=== PATIENT | male | born 1935 | race Caucasian/White ===

== ENCOUNTER 2019-08-03 09:48 | Outpatient (CLI) | payer MEDICARE ==
--- NOTE | 2019-08-03 10:47 | CT ---
CT ANGIOGRAM OF THE NECK: HISTORY: Carotid stenosis. COMPARISON: None. TECHNIQUE: CT angiogram of the neck is performed in the axial plane. Three-dimensional reformatted images are higgins bmitted for interpretation. FINDINGS: No pathologic enhancement of the brain parenchyma. Adequate aeration of the visualized sinuses and mastoid air cells, with the exception of the right ma xillary sinus where there is mild mucosal disease. Aerodigestive tract is patent. No obvious mucosal abnormality. Dental amalgam artifact is noted. Midl ine fatty raphae of the tongue is preserved. Epiglottis has a normal caliber. Preepiglottic fat is preserved. Symmetric attenuation of the parotid and submandibular glands. Symmetric attenuation of the paraspinal muscles. Cervical spine vertebral body heights are maintained. There is no fracture. Straightening of cervical lordosis is noted. There is multilevel degenerative disc disease with loss of disc space height and osteophyte formation. There are varying degrees of significant neural foraminal stenosis and cent ral canal stenosis, greatest at C3-C4 and to lesser extent at C4-C5/C5-C6. Technique limits evaluation. No evidence of lymphadenopathy by size criteria. No acute abnormality in the upper mediastinum and lung parenchyma. CT ANGIOGRAM: The visualized aortic arch demonstrates atherosclerosis. Right carotid: The right carotid artery origin demonstrates mild calcified and noncalcified plaque. T he innominate artery and common carotid artery have appropriate enhancement and luminal diameter. There is short segment severe stenosis involving the carotid bifurcation and proximal internal caroti d artery due to a large calcified plaque. The mid and distal internal carotid artery have appropriate enhancement and luminal diameter. Left carotid: The left carotid artery origin demonstrates mild narrowing due to calcified and noncalc ified plaque. The common carotid artery has short segments of calcified plaque. There is calcified plaque in the distal left common carotid artery, carotid bifurcation and internal carotid artery. The re is short segment severe stenosis due to noncalcified plaque involving the proximal left internal carotid artery. The mid to distal left internal carotid artery has appropriate enhancement and lumina l diameter. Bilateral vertebral arteries are patent throughout their course in the neck and essentially codominan t. Bilateral subclavian arteries are patent. Mild atherosclerotic disease at the origin of the left subc lavian artery. IMPRESSION: 1. Short segment high-grade stenosis involving the right carotid bifurcation and proximal right inter nal carotid artery. 2. Short segment high-grade stenosis involving the proximal left internal carotid artery. Transcribed Date/Time: 08/03/2019 10:59 AM
[2019-08-03] MEDS ORDERED: Iopamidol-370 76% 500 ML 1 ML ONE (14:30)
== END 2019-08-03 09:49 | disposition home or self-care (01) ==
LOC: BICCT 09:48
PROVIDERS: ATTEND Thoracic Surgery (Cardiothoracic Vascular Surgery)
DX: I65.23 Occlusion and stenosis of bilateral carotid arteries (principal)
CPT/HCPCS: 70498

== ENCOUNTER 2019-08-03 09:51 | Outpatient (CLI) | payer MEDICARE ==
--- NOTE | 2019-08-03 10:32 | ULT ---
ULTRASOUND THYROID STANDARD: History: Thyroid nodule. Comparison: Neck CT same day. Findings: Real-time grayscale and color evaluation of the thyroid was performed. Isthmus measures 5 mm in AP dimension. Right lobe measures 3.9 x 1.2 x 0.8 cm and the left lobe measu res 3.8 x 1 x 0.8 cm. In the left lobe of thyroid is a 0.7 x 0.6 x 0.5 cm solid isoechoic wider than tall nodule with well- defined margins without echogenic foci. This nodule is TIRADS 3: Mildly suspicious. No other thyroid nodule is appreciated. Impression: No thyroid nodule requiring aspiration or follow-up per TIRADS criteria. Transcribed Date/Time: 08/03/2019 10:44 AM
== END 2019-08-03 09:52 | disposition home or self-care (01) ==
LOC: BICULT 09:51
PROVIDERS: ATTEND Internal Medicine
DX: E04.1 Nontoxic single thyroid nodule (principal)
CPT/HCPCS: 70498; 76536; Q9967

== ENCOUNTER 2019-09-20 07:01 | Outpatient (CLI) | payer MEDICARE ==
--- NOTE | 2019-09-20 08:49 | MRI ---
Exam: MR angiogram of the neck with and without contrast HISTORY: Carotid stenosis COMPARISON: None Correlation: CT angiogram of the neck 08/03/2019 TECHNIQUE: MRI exam of the neck is performed with and without intravenous gadolinium administration. Axial 2-D [id number] imaging and coronal postcontrast imaging was performed. Maximum intensity projection images are submitted for interpretation FINDINGS: Noncontrast MR angiography of the neck: Short segment high-grade occlusion with decreased f low related signal in the proximal right internal carotid artery. Short segment moderate stenosis involving the proximal left internal carotid artery Postcontrast MR angiography of the neck: Appropriate enhancement and luminal diameter in the visualiz ed aortic arch Right carotid: Decreased enhancement and luminal diameter involving the origin of the right carotid a rtery, innominate artery and proximal to mid common carotid artery. Findings may be due to technical limitations. Mid to distal common carotid artery is appropriate enhancement and luminal fazal meter. There is short segment high-grade stenosis involving the proximal right internal carotid artery. The mid to distal internal carotid artery is appropriate enhancement and luminal diameter Left carotid: Appropriate enhancement and luminal diameter with regards to the origin left carotid ar danny. Common carotid artery is appropriate enhancement and luminal diameter. Short segment moderate to severe stenosis involving the proximal left internal carotid artery. The mid to distal left advisory internship al carotid artery is appropriate enhancement and luminal diameter. Grossly symmetric cysts subclavian arteries. Limited evaluation of both vertebral artery origins. Oth erwise, appropriate flow related signal. IMPRESSION: Somewhat limited evaluation of the cervical carotid arteries. Nevertheless, there appears to be severe stenosis of the proximal right internal carotid artery and moderate to severe stenosis of the proximal left internal carotid artery.
--- NOTE | 2019-09-20 09:02 | MRI ---
MRI BRAIN WITH AND WITHOUT CONTRAST: DATE: 09/20/2019 HISTORY: 84-year-old male with carotid artery high-grade stenosis. Concern for infarction. TECHNIQUE: Multiplanar, multisequence MRI of the brain obtained pre and post IV injection of gadolinium based co ntrast agent. FINDINGS: There is no obstructive hydrocephalus. There is no midline shift or any other evidence of mass effect . There is no extra-axial fluid collection. There is a mild-moderate degree of T2-hyperintensities in the cerebral white matter consistent with chronic ischemic white matter changes due to microvascul ar atherosclerosis. There is no abnormal enhancement, mass, recent hemorrhage, or restricted diffusion. There is age-appropriate brain parenchymal volume loss. IMPRESSION: 1) mild-moderate chronic ischemic white matter changes. 2) otherwise negative
[2019-09-20] MEDS ORDERED: Magnevist 469MG/ML 20 ML VIAL ONE ×2 (09:33)
== END 2019-09-20 07:02 | disposition home or self-care (01) ==
LOC: MRI 07:01
PROVIDERS: ATTEND Thoracic Surgery (Cardiothoracic Vascular Surgery)
DX: I65.23 Occlusion and stenosis of bilateral carotid arteries (principal); I67.82 Cerebral ischemia
CPT/HCPCS: 70549; 70553; 82565; A9579

== ENCOUNTER 2019-09-23 09:45 | Outpatient (CLI) | payer MEDICARE, OTHER ==
[2019-09-23 11:59] LABS: Hemoglobin 13.3 g/dL (14.0-18.0); Mean Corpuscular HGB CONC 32.3 g/dL (32.0-36.0); Mean Corpuscular Hemoglobin 32.6 pg (27.0-31.0); Mean Platelet Volume 9.3 fL (7.4-10.4); Platelet Count 187 thou/uL (130-400); RBC Distribution Width 13.1 % (11.5-14.5); Red Blood Cell (RBC) Count 4.09 mill/uL (4.70-6.10); White Blood Cell (WBC) Count 5.9 thou/uL (4.8-10.8)
[2019-09-23 12:01] LABS: Anion Gap 11 mmol/L (10-20); BUN (Urea Nitrogen) 23 mg/dL (8.4-25.7); Calc. Creatinine Clearance 0 mL/min (70-130); Calcium 9.5 mg/dL (7.8-10.44); Carbon Dioxide 26 mmol/L (23-31); Chloride 105 mmol/L (98-107); Estimated GFR-MDRD 68; Glucose 102 mg/dL (83-110); Potassium 4.2 mmol/L (3.5-5.1); Sodium 138 mmol/L (136-145)
[2019-09-23 17:58] LABS: SARS-CoV-2 MS2 Positive; SARS-CoV-2 N Gene Negative; SARS-CoV-2 S Gene Negative; SARS-CoV-2 orf1ab Negative
== END 2019-09-23 09:46 | disposition home or self-care (01) ==
LOC: LABBT 09:45
PROVIDERS: ATTEND Thoracic Surgery (Cardiothoracic Vascular Surgery)
DX: Z01.812 Encounter for preprocedural laboratory examination (principal); Z11.59 Encounter for screening for other viral diseases
CPT/HCPCS: 70544; 80048; 85027; U0002; 87635

== ENCOUNTER 2019-09-23 16:15 | Inpatient (IN) | payer MEDICARE ==
--- NOTE | 2019-09-24 17:26 | HP ---
HISTORY OF PRESENT ILLNESS: This is a pleasant 84-year-old gentleman who is now being admitted on 09/26 for elective carotid endarterectomy on the right. His history includes remote coronary artery bypass grafting with recent re-evaluation by Dr. Escalera with repeat cardiac catheterization demonstrating patent grafts. However, the patient has had progression of aortic valve stenosis to severe such that it has been recommended that he undergo TAVR. He was found to have bilateral critical carotid disease on ultrasonography and CTA with an MRA showing a patent [place] of [place]. He was evaluated in [place] for his TAVR and the recommendation was to go ahead and fix one of his carotid arteries prior to TAVR. PAST MEDICAL HISTORY: Includes hypertension, dyslipidemia, and hypothyroidism. MEDICATIONS: Include: 1. Aspirin 81. 2. Amlodipine once a day. 3. Crestor 20 mg a day. 4. Losartan/hydrochlorothiazide 100/12.5 a day. 5. Levothyroxine 75 mcg a day. ALLERGIES: NONE KNOWN. SOCIAL HISTORY: The patient is nonsmoker. REVIEW OF SYSTEMS: He denies any weight loss or change in appetite or fatigue. He has no cough or dyspnea at rest, but does admit to some shortness of breath with exertion. He has no chest pain with rest or exertion and has no claudication. He has no symptoms to suggest TIAs. PHYSICAL EXAMINATION: VITAL SIGNS: On examination, he is alert, cooperative gentleman. VITAL SIGNS: Blood pressure 133/57, height 5 feet 10 inches, weight 165. NECK: Bilateral bruits, right louder than left. CARDIAC: Regular rate and rhythm with a harsh systolic murmur and a healed sternotomy incision. LUNGS: Clear to auscultation. EXTREMITIES: Without edema and he has palpable femoral, popliteal, and posterior tibial pulses. PLAN: Plan at this time is for carotid endarterectomy. Informed consent has been obtained. Job ID: [id number]
[2019-09-27] MEDS ORDERED: Protamine Sulfate 50 MG/5 ML VIAL ONE (06:34)
[2019-09-27] MEDS ORDERED: Heparin 5,000 UNITS/ML VIAL ONE (06:34)
[2019-09-27] MEDS ORDERED: Fentanyl 100 MCG/2 ML VIAL ONE ×3 (06:48→09:51)
[2019-09-27] MEDS ORDERED: Ondansetron HCl/PF 4 MG/2 ML Vial IVP PRN (09:32)
[2019-09-27] MEDS ORDERED: Promethazine HCl 25 MG/ML VIAL SLOW IVP PRN (09:32)
[2019-09-27] MEDS ORDERED: Promethazine HCl 25 MG/ML VIAL IM PRN ×2 (09:32→11:50)
[2019-09-27] MEDS ORDERED: PHENYLEPHRINE-NS 100 MCG/ML 10 ML SYRINGE ONE (09:39)
[2019-09-27] MEDS ORDERED: Glycopyrrolate 0.2 MG/ML 5 ML SYRINGE ONE (09:39)
[2019-09-27] MEDS ORDERED: Vecuronium 10 MG VIAL ONE (09:39)
[2019-09-27] MEDS ORDERED: Ondansetron PF 4 MG/2 ML Vial ONE (09:39)
[2019-09-27] MEDS ORDERED: Lidocaine 1% PF 5 ML VIAL ONE (09:39)
[2019-09-27] MEDS ORDERED: Dexamethasone 20 MG/5 ML VIAL ONE (09:39)
[2019-09-27 11:29] VITALS: BMI 20.7
--- NOTE | 2019-09-27 11:41 | OP ---
DATE OF PROCEDURE: 09/27/2019 PREOPERATIVE DIAGNOSIS: Critical right internal carotid artery stenosis. PROCEDURES PERFORMED: Right carotid endarterectomy with Bovine patch angioplasty. ANESTHESIA: General. ESTIMATED BLOOD LOSS: Less than 100. DESCRIPTION OF PROCEDURE: After ultrasound guided marking of the skin, the patient was prepped and draped. Incision was made. Platysma was divided. Sternocleidomastoid muscle rotated laterally. The inferior thyroid artery actually crossed across the internal carotid artery and was ligated and divided. Hypoglossal and vagus nerves were not identified. After obtaining control of the internal, external, and common carotid arteries, heparin was administered and ACT returned greater than 300 seconds. Clamps were applied. Arteriotomy performed and the area debrided of any loose calcium, irrigated thoroughly and then a 12-Khmer shunt was placed. Endarterectomy was then performed with nice tapering distally. The vessel was good size. However, a patch was utilized using Bovine pericardial patch and #6-0 Prolene suture. Following closure, but prior to tying the suture line, the shunt was removed, vessels backflushed and forward flushed, and flow restored up the external and then internal carotid arteries. Heparin was partially reversed with protamine, following which good hemostasis was obtained. The wound was irrigated and closed in layers and the patient is to be taken to the recovery room in guarded condition. Job ID: [id number]
[2019-09-27] MEDS ORDERED: Fentanyl 100 MCG/2 ML VIAL SLOW IVP PRN ×2 (11:50)
[2019-09-27] MEDS ORDERED: Nitroglycerin 50 MG/250 ML BOT 250 ML IVPB PRN (11:50)
[2019-09-27] MEDS ORDERED: Ondansetron PF 4 MG/2 ML Vial IVP PRN (11:50)
[2019-09-27] MEDS ORDERED: Sodium Chloride 0.9% 1,000 ML IV SCH (11:50)
[2019-09-27] MEDS ORDERED: Phenylephrine 10 MG/NS 250 ML 250 ML IVPB PRN (11:50)
[2019-09-27] MEDS ORDERED: Acetaminophen 325 MG TAB PO PRN (11:50)
[2019-09-27] MEDS ORDERED: HYDROcodone/Acetaminophen 5/325 mg Tablet PO PRN (11:50)
[2019-09-27] MEDS: CEFAZOLIN 2 GM in Premix Bag 1 BAG IVPB SCH ×2 (15:15→23:07)
[2019-09-27] MEDS ORDERED: Rosuvastatin 20 MG TAB PO SCH (21:00)
[2019-09-27] MEDS ORDERED: Amlodipine 5 MG TAB PO SCH (21:00)
[2019-09-27] MEDS ORDERED: Finasteride 5 MG TAB PO SCH (21:30)
[2019-09-27] MEDS: HYDROcodone/Acetaminophen 5/325 mg Tablet PO PRN (23:09)
[2019-09-28] MEDS: HYDROcodone/Acetaminophen 5/325 mg Tablet PO PRN (03:18)
[2019-09-28] MEDS ORDERED: Levothyroxine Sodium 75 MCG TAB PO SCH (06:00)
[2019-09-28] MEDS: CEFAZOLIN 2 GM in Premix Bag 1 BAG IVPB SCH (06:28)
[2019-09-28 07:31] VITALS: TEMP 98.1
[2019-09-28] MEDS ORDERED: Hydrochlorothiazide 25 MG TAB PO SCH (09:00)
[2019-09-28] MEDS ORDERED: Tamsulosin HCl 0.4 MG CAP PO SCH (09:00)
[2019-09-28] MEDS ORDERED: Aspirin Chewable 81 MG TAB PO SCH (09:00)
[2019-09-28] MEDS ORDERED: Losartan 25 MG TAB PO SCH (09:00)
--- NOTE | 2019-09-29 01:59 | DIS ---
DATE OF ADMISSION: 09/27/2019 DATE OF DISCHARGE: 09/28/2019 The patient underwent a right carotid endarterectomy. His postoperative course was uneventful. He did have some anxiety, but his neck incision looked fine with no swelling and he was able to swallow and get up on his own and move around. He was unable to void and initial catheter placement evidently was somewhat difficult and there was some bleeding and he had about 400 mL immediately and then about 200 mL of further urine output. His urine cleared overnight, but due to his nocturia every 1.5 hours at home on Flomax, I think we will leave the catheter and he will follow up with Dr. Coker in about 6 days and these arrangements are in the process of being made. He will resume his home medications with no new prescriptions. Job ID: [id number]
--- NOTE | 2019-09-29 08:16 | PQF ---
MACY GARCIA JAMES M MD [id number] CLINICAL DOCUMENTATION CLARIFICATION FORM: POST DISCHARGE Addendum to original discharge summary date: ____ Late entry note date: 09/29 Date: 09/29/2019 ATTN: Julio Abebe Please exercise your independent, professional judgment in responding to the clarification form. Clinical indicators are provided on the bottom of this form for your review Please check appropriate box(s): [ ] Protein Calorie Malnutrition: [ ] Mild [ ] Moderate [ ] Severe [ ] Other Malnutrition (please specify) __ [y ] Underweight without malnutrition [ ] Cachexia [ ] Other diagnosis [ ] Unable to determine In addition, please specify: Present on Admission (POA): [ ] Yes [ ] No [ ] Unable to determine CLINICAL INDICATORS - SIGNS / SYMPTOMS / LABS BMI 20.7-RD Consult 09/27 RD Consult 09/27 "12% weight loss x [address]" [address] Consult 09/27 "patient likely meeting less than 75% estimated nutrient needs " RD Consult 09/27 "suggesting severe malnutrition" RISK FACTORS 09/23-84 years old 09/23-HTN HP 09/23-HLD 09/23-Hypothyroidisim TREATMENT: Dietitian Consult-RD Consult 09/27 Ensure Elivet-RD Consult 09/27 Monitor weight change-RD Consult 09/27 Moderate Malnutrition (in acute illness) Energy Intake: <75% of estimated energy requirement for > 7 days Weight Loss: 1-2%/1 week; 5%/ 1 month; 7.5%/3 months Other: mild body fat loss; mild muscle mass loss; mild fluid accumulation; Severe Malnutrition (in acute illness) Energy Intake: < 50% of estimated energy requirement for > 5 days Weight Loss: >1-2%/1 week; >5%/1 month; >7.5%/3 months Other: moderate body fat loss; moderate muscle mass loss; moderate- severe fluid accumulation; measurably reduced digital performance analyst strength Moderate Malnutrition (in chronic illness) Energy Intake: <75% of estimated energy requirement for >1 month Weight Loss: 5%/1 month; 7.5%/3 months; 10%/6 months; 20%/1 year Other: mild body fat loss; mild muscle mass loss; mild fluid accumulation Severe Malnutrition (in chronic illness) Energy Intake: <75% of estimated energy requirement for >1 month Weight Loss: >5%/1 month; >7.5%/3 months; >10%/6 months; >20%/1 year Other: severe body fat loss; severe muscle mass loss; severe fluid accumulation ; measurably reduced digital performance analyst strength (This form is maintained as a part of the permanent medical record) 2014 [employer] All Rights Reserved [email or web address]
== END 2019-09-28 10:15 | disposition home or self-care (01) | DRG 39 ==
LOC: EDSTATUS 09-24 16:15 → SURG A 09-27 06:01 → CCU 09-27 10:28
PROVIDERS: ADMIT Thoracic Surgery (Cardiothoracic Vascular Surgery); ATTEND Thoracic Surgery (Cardiothoracic Vascular Surgery)
PROC: 03CK0ZZ Extirpation of Matter from Right Internal Carotid Artery, Open Approach (ICD-10-PCS; principal; 2019-09-27)
PROC: 03UK0KZ Supplement Right Internal Carotid Artery with Nonautologous Tissue Substitute, Open Approach (ICD-10-PCS; 2019-09-27)
DX: I65.21 Occlusion and stenosis of right carotid artery (principal); I35.0 Nonrheumatic aortic (valve) stenosis; I10 Essential (primary) hypertension; E78.5 Hyperlipidemia, unspecified; E03.9 Hypothyroidism, unspecified; I25.10 Atherosclerotic heart disease of native coronary artery without angina pectoris; F41.9 Anxiety disorder, unspecified; N40.0 Benign prostatic hyperplasia without lower urinary tract symptoms; H91.93 Unspecified hearing loss, bilateral; Z95.1 Presence of aortocoronary bypass graft; Z95.5 Presence of coronary angioplasty implant and graft; Z79.82 Long term (current) use of aspirin; Z79.899 Other long term (current) drug therapy; Z85.828 Personal history of other malignant neoplasm of skin; Z97.4 Presence of external hearing-aid; R63.6 Underweight; Z68.20 Body mass index [BMI] 20.0-20.9, adult
CPT/HCPCS: J0690; J1100; J1642; J1644; J2001; J2405; J2720; J3010

== ENCOUNTER 2020-06-06 07:19 | Day surgery (SDC) | payer MEDICARE ==
[2020-06-02 13:23] VITALS: BMI 22.4
[2020-06-06] MEDS ORDERED: Levofloxacin 500 mg/D5W 100 ml Premix Bag ONE (08:42)
[2020-06-06] MEDS ORDERED: Fentanyl 100 MCG/2 ML VIAL ONE (09:11)
--- NOTE | 2020-06-06 10:09 | OP ---
DATE OF PROCEDURE: 06/06/2020 PREOPERATIVE DIAGNOSIS: Enlarged prostate with lower urinary tract symptoms. POSTOPERATIVE DIAGNOSIS: Enlarged prostate with lower urinary tract symptoms. PROCEDURE PERFORMED: UroLift. ANESTHESIA: TIVA. COMPLICATIONS: None. ESTIMATED BLOOD LOSS: None. SPECIMENS: None. DESCRIPTION OF PROCEDURE: After informed consent, the patient was taken to the operating room, transferred to the table under his own power. Anesthesia was established. A time-out was performed, showing the correct patient, site, and procedure. Preoperative antibiotics were administered. He was prepped and draped in the lithotomy position. The rigid cystoscope was advanced through the urethra noting a normal course and caliber of the urethra into the bladder. The bladder was systematically examined, noting moderate trabeculation with multiple diverticula throughout. No mucosal abnormalities. Two implants were deployed at the bladder neck, one on the left, one on the right. Two further implants at the apex of the prostate around the level of the verumontanum, again one left, one right. He had persistent obstruction from the mid prostate on the left side, at which point, a fifth implant was deployed. He had an excellent channel throughout the prostate with no persistent obstruction. The bladder was then drained and refilled with about 200 mL. He was then awoken from anesthesia, transferred back to his hospital bed and taken to PACU in stable condition, where he will discharge home upon recovery. Job ID: [id number]
[2020-06-06] MEDS ORDERED: Phenazopyridine HCl 100 MG TAB ONE (10:10)
[2020-06-06] MEDS ORDERED: Ketorolac Tromethamine 30 MG/ML VIAL ONE (10:10)
[2020-06-06] MEDS ORDERED: Oxybutynin 5 MG TAB ONE (10:11)
[2020-06-06] MEDS ORDERED: HYDROcodone/Acetaminophen 5/325 mg Tablet ONE (16:25)
== END 2020-06-06 17:20 | disposition home or self-care (01) ==
LOC: SDC 07:19
PROVIDERS: ATTEND Urology
PROC: 0T7D8DZ Dilation of Urethra with Intraluminal Device, Via Natural or Artificial Opening Endoscopic (ICD-10-PCS; principal; 2020-06-06)
DX: N40.1 Benign prostatic hyperplasia with lower urinary tract symptoms (principal); R33.8 Other retention of urine; R35.1 Nocturia; I10 Essential (primary) hypertension; I25.10 Atherosclerotic heart disease of native coronary artery without angina pectoris; I44.7 Left bundle-branch block, unspecified; G47.00 Insomnia, unspecified; Z79.02 Long term (current) use of antithrombotics/antiplatelets; Z79.82 Long term (current) use of aspirin; Z79.899 Other long term (current) drug therapy; Z88.1 Allergy status to other antibiotic agents; Z95.1 Presence of aortocoronary bypass graft; Z95.2 Presence of prosthetic heart valve; Z95.5 Presence of coronary angioplasty implant and graft
CPT/HCPCS: C1889; J1885; J1956; J3010

== ENCOUNTER 2020-06-19 00:45 | Inpatient (IN) | payer MEDICARE ==
[2020-06-19 01:32] LABS: Band 27 % (5-11); Hemoglobin 9.6 g/dL (14.0-18.0); Lymphocytes 4 % (21-51); MDiff Complete? YES; Mean Corpuscular HGB CONC 33.5 g/dL (32.0-36.0); Mean Corpuscular Hemoglobin 33.3 pg (27.0-31.0); Mean Corpuscular Volume 99.4 fL (78.0-98.0); Monocytes 2 % (0-10); Neutrophil 67 % (42-75); Platelet Count 203 thou/uL (130-400); Platelet Morphology Comment Appears Adequate; RBC Distribution Width 13.5 % (11.5-14.5); Red Blood Cell (RBC) Count 2.89 mill/uL (4.70-6.10); White Blood Cell (WBC) Count 12.8 thou/uL (4.8-10.8)
[2020-06-19 01:38] LABS: Bilirubin Negative (Negative); Blood, Urine Negative (Negative); Clarity Clear (Clear); Glucose, Urine (Dipstick) Normal (Negative); Ketone, Urine Negative (Negative); Leukocyte Negative Leu/uL (Negative); Nitrite Negative (Negative); Protein, Urine (Dipstick) Negative (Neg-Trace); Specific Gravity, Urine 1.023 (1.002-1.036); Urobilinogen Normal mg/dL (Less than 2)
[2020-06-19 01:52] LABS: ALT (SGPT) 19 U/L (8-55); AST (SGOT) 17 U/L (5-34); Albumin 3.2 g/dL (3.4-4.8); Alkaline Phosphatase 53 U/L (40-110); Anion Gap 12 mmol/L (10-20); BUN (Urea Nitrogen) 28 mg/dL (8.4-25.7); Bilirubin, Total 0.6 mg/dL (0.2-1.2); CK (CPK) 36 U/L (30-200); Calc. Creatinine Clearance 0 mL/min (70-130); Calcium 8.1 mg/dL (7.8-10.44); Carbon Dioxide 22 mmol/L (23-31); Chloride 107 mmol/L (98-107); Globulin 2.4 g/dL (2.4-3.5); Glucose 154 mg/dL (83-110); Protein, Total 5.6 g/dL (5.8-8.1); Sodium 137 mmol/L (136-145)
[2020-06-19] MEDS ORDERED: Cefepime 2 GM VIAL ONE (01:54)
--- NOTE | 2020-06-19 02:52 | PDOC.HHP ---
Hospitalist HPI - History of Present Illness Chills History of Present Illness: PCP: Dr. Ángel Esquivel The patient is an 84-year-old male with a past medical history significant for CAD (CABG x3 with AVR), HTN, HLD and hypothyroidism that presents to the emergency department via EMS for the above complaint. Patient reports acute onset of chills at approximately 6 PM the evening prior to arrival to the [facility]. He reports associated nausea and general body aches. He reports that he had his first Moderna Covid vaccination 10 days ago. He was tested negative for Covid 3 days prior to his receiving vaccination. He denies any known sick contacts. He denies any loss of taste or smell. He had a UroLift surgery by Dr. Coker 2 weeks ago. He denies abdominal pain, nausea, vomiting, diarrhea. Denies hematuria or dysuria. He reports that he took a hot bath and his symptoms resolved. They then returned, so he called EMS. Upon arrival, EMS noted that the patient had stable vital signs. Patient reports that his symptoms had resolved when EMS arrived. He denies any cough, shortness of breath. No history of DVT/PE. No history of COPD/asthma. Denies chest pain and heart palpitations or light headedness. No swelling to lower extremities. No rashes. ED Course: VITAL SIGNS FriJun 19, 2020 00:48 FREDY Olivas Mikayla BP: 142/54, Pulse: 109, Resp: 20, Temp: 98.0 (Oral), Pain: 5, O2 sat: 97 on (Room Air), Time: 06/19/2020 00:48. VITAL SIGNS FriJun 19, 2020 01:35 FREDY Olivas Mikayla BP: 124/63, Pulse: 93, Resp: 18, Temp: 98.1 (Oral), Pain: 0, O2 sat: 98 on (Room Air), Time: 06/19/2020 01:35. VITAL SIGNS FriJun 19, 2020 02:01 FREDY Olivas Mikayla BP: 120/56, Pulse: 82, Resp: 22, Temp: 99.5 (Oral), Pain: 0, O2 sat: 96 on (Room Air), Time: 06/19/2020 02:01. Medications: vancomycin intravenous 1 g IV Piggy Back Acknowledged 01:39 06/19/2020 cefepime injection 2 g IV Piggy Back Given 02:00 06/19/2020 Hospitalist ROS - Review of Systems All other systems reviewed; all pertinent +/- noted in HPI/Subj - Medication Medications: levothyroxine oral FriJun 19, 2020 01:21 FREDY Olivas Mikayla tablet : Strength - 75 mcg : ORAL Patient Dose: 1 tab(s) Oral once a day. losartan-hydrochlorothiazide FriJun 19, 2020 01:21 FREDY Olivas Mikayla tablet : Strength - 100 mg-25 mg : ORAL Patient Dose: 1 tab(s) Oral once a day. Plavix FriJun 19, 2020 01:22 FREDY Olivas Mikayla tablet : Strength - 75 mg : ORAL Patient Dose: 1 tab(s) Oral once a day. aspirin oral FriJun 19, 2020 01:22 FREDY Olivas Mikayla tablet,chewable : Strength - 81 mg : ORAL Patient Dose: 1 tab(s) Oral once a day. Surfak FriJun 19, 2020 01:23 FREDY Olivas Mikayla capsule : Strength - 240 mg : ORAL Patient Dose: 1 cap(s) Oral once a day. amLODIPine FriJun 19, 2020 01:23 FREDY Olivas Mikayla tablet : Strength - 5 mg : ORAL Patient Dose: 2 tab(s) Oral once a day. rosuvastatin FriJun 19, 2020 01:23 FREDY Olivas Mikayla tablet : Strength - 20 mg : ORAL Patient Dose: 1 tab(s) Oral once a day. chlorpheniramine oral FriJun 19, 2020 01:24 FREDY Olivas Mikayla tablet : Strength - 4 mg : ORAL Patient Dose: 1 tab(s) Oral once a day. traZODone FriJun 19, 2020 01:24 FREDY Olivas Mikayla tablet : Strength - 50 mg : ORAL Patient Dose: 1 tab(s) Oral once a day (at bedtime). Allergies: SHIRA Inhibitors (Unconfirmed), Beta-Blockers (Beta-Adrenergic Bloc (Unconfirmed) Hospitalist History - Past Medical History Source: patient, RN notes reviewed Cardiac: reports: CAD (Status post CABG x3), HTN, Hyperlipidemia, Aortic stenosis (Status post AVR) Endocrine: reports: Hypothyroidism - Past Surgical History Past Surgical History: reports: Appendectomy, CABG (X3 with AVR), Other (Right CEA) - Family History Family History: reports: cardiac disorder (Father) - Social History Smoking Status: Never smoker Alcohol: reports: None Drugs: reports: none Living Situation: Alone Occupation: Does not work Activity level: independent ambulation - Exam General Appearance: NAD, awake alert. negative: ill appearing Eye: anicteric sclera ENT: normocephalic atraumatic, dry oral mucosa Neck: supple, no lymphadenopathy Heart: RRR, no gallops, no rubs, normal peripheral pulses, III/IV Respiratory: CTAB, no wheezes, no rales, no ronchi, normal chest expansion, no tachypnea Gastrointestinal: soft, non-tender, normal bowel sounds, no bruit, no guarding, no rigidity Extremities: no cyanosis, no edema Skin: no rashes Neurological: cranial nerve grossly intact, no focal deficits Musculoskeletal: normal tone, normal strength Psychiatric: normal affect, A&O x 3 Hospitalist Results - Labs Result Diagrams: 06/19/20 01:15 06/19/20 01:15 Lab results: WBC 12.8 thou/uL (4.8-10.8) H 06/19/20 01:15 Hgb 9.6 g/dL (14.0-18.0) L 06/19/20 01:15 Hct 28.7 % (42.0-52.0) L 06/19/20 01:15 MCV 99.4 fL (78.0-98.0) H 06/19/20 01:15 Plt Count 203 thou/uL (130-400) 06/19/20 01:15 Band Neuts % (Manual) 27 % (5-11) H 06/19/20 01:15 Sodium 137 mmol/L (136-145) 06/19/20 01:15 Potassium 4.0 mmol/L (3.5-5.1) 06/19/20 01:15 Chloride 107 mmol/L (98-107) 06/19/20 01:15 Carbon Dioxide 22 mmol/L (23-31) L 06/19/20 01:15 BUN 28 mg/dL (8.4-25.7) H 06/19/20 01:15 Creatinine 1.25 mg/dL (0.7-1.3) 06/19/20 01:15 Glucose 154 mg/dL (83-110) H 06/19/20 01:15 Lactic Acid 1.8 mmol/L (0.5-2.2) 06/19/20 01:15 Calcium 8.1 mg/dL (7.8-10.44) 06/19/20 01:15 Total Bilirubin 0.6 mg/dL (0.2-1.2) 06/19/20 01:15 AST 17 U/L (5-34) 06/19/20 01:15 ALT 19 U/L (8-55) 06/19/20 01:15 Alkaline Phosphatase 53 U/L (40-110) 06/19/20 01:15 Creatine Kinase 36 U/L (30-200) 06/19/20 01:15 Troponin I 0.027 ng/mL (< 0.028) 06/19/20 01:15 Serum Total Protein 5.6 g/dL (5.8-8.1) L 06/19/20 01:15 Albumin 3.2 g/dL (3.4-4.8) L 06/19/20 01:15 Urine Ketones Negative mg/dL (Negative) 06/19/20 01:27 Urine Blood Negative (Negative) 06/19/20 01:27 Urine Nitrite Negative (Negative) 06/19/20 01:27 Ur Leukocyte Esterase Negative Tino/uL (Negative) 06/19/20 01:27 - EKG Interpretation EK lead EKG interpreted by Emergency Department Physician at time of study, 12 lead EKG shows, sinus tachycardia, Rate (beats per minute): 108, with no ectopics, Conduction with, complete left bundle branch block, ST segments normal, T waves normal, Switzer normal, - Radiology Interpretation Chest x-ray Status: pending Hospitalist H&P A/P - Problem (1) Sepsis without septic shock Code(s): A41.9 - SEPSIS, UNSPECIFIED ORGANISM Status: Acute (2) CAD (coronary artery disease) Code(s): I25.10 - ATHSCL HEART DISEASE OF [place] CORONARY ARTERY W/O ANG PCTRS Status: Chronic (3) Hypothyroidism Code(s): E03.9 - HYPOTHYROIDISM, UNSPECIFIED Status: Chronic (4) HTN (hypertension) Code(s): I10 - ESSENTIAL (PRIMARY) HYPERTENSION Status: Chronic (5) HLD (hyperlipidemia) Code(s): E78.5 - HYPERLIPIDEMIA, UNSPECIFIED Status: Chronic - Plan Plan: Patient with CAD and hypothyroidism status post receiving first Moderna Covid vaccination 10 days ago presents for chills. CXR no acute process. LA 1.8. WBCs 12.8. Blood/urine CX pending. Influenza/Covid pending. #Sepsis without septic shock Presented tachycardic, NL BP, RR, SPO2, afebrile. WBCs 12.8 with bandemia Recent UroLift procedure, UA unremarkable. Recent Nicholas vaccination. Continue broad-spectrum antibiotics, cefepime and vancomycin. Blood/urine CX pending Influenza/Covid testing pending. #CAD Status post CABG x3 with AVR. Takes aspirin Plavix at home. Restart home medications. #Hypothyroidism Check TSH. Restart home dose levothyroxine. #Hypertension Presented normotensive. Restart home dose Norvasc, losartan/HCTZ. #HLD Restart home dose rosuvastatin. SCDs for DVT prophylaxis. No GI prophylaxis. CODE STATUS is full code. Discussed the case with attending physician, Dr. Howard Mathews, who agrees with plan of care.
[2020-06-19] MEDS ORDERED: Vancomycin 1 GM/200 ML BAG ONE (02:57)
[2020-06-19] MEDS ORDERED: Acetaminophen 325 MG TAB PO PRN (03:23)
[2020-06-19] MEDS ORDERED: Ondansetron ODT 4 MG TAB PO PRN (03:23)
[2020-06-19 03:38] LABS: SARS-CoV-2 NAA Rapid Test Not Detected (NotDetected)
[2020-06-19 04:51] VITALS: BMI 22.6
[2020-06-19 05:59] LABS: Hemoglobin 9.3 g/dL (14.0-18.0); Mean Corpuscular HGB CONC 32.3 g/dL (32.0-36.0); Mean Corpuscular Hemoglobin 32.3 pg (27.0-31.0); Mean Corpuscular Volume 99.8 fL (78.0-98.0); Mean Platelet Volume 7.9 fL (7.4-10.4); Platelet Count 191 thou/uL (130-400); RBC Distribution Width 13.2 % (11.5-14.5); Red Blood Cell (RBC) Count 2.88 mill/uL (4.70-6.10); White Blood Cell (WBC) Count 19.6 thou/uL (4.8-10.8)
[2020-06-19 06:25] LABS: Anion Gap 10 mmol/L (10-20); BUN (Urea Nitrogen) 27 mg/dL (8.4-25.7); Calc. Creatinine Clearance 47 mL/min (70-130); Calcium 8.2 mg/dL (7.8-10.44); Carbon Dioxide 24 mmol/L (23-31); Chloride 106 mmol/L (98-107); Glucose 123 mg/dL (83-110); Sodium 136 mmol/L (136-145)
[2020-06-19 06:37] LABS: Band 37 % (5-11); Lymphocytes 5 % (21-51); MDiff Complete? YES; Monocytes 4 % (0-10); Neutrophil 54 % (42-75); Platelet Morphology Comment Appears Adequate
--- NOTE | 2020-06-19 08:02 | RAD ---
Portable frontal chest radiograph: 06/19/2020 COMPARISON: 05/03/2009 HISTORY: Vomiting FINDINGS: Mild increased linear interstitial density and pulmonary hyperinflation. Stable midline avinash rnotomy wires. No pneumothorax, pleural fluid, lobar consolidation, or alveolar edema. IMPRESSION: No focal consolidation or alveolar edema.
[2020-06-19] MEDS ORDERED: Docusate Calcium (SURFAK) 240 MG CAP PO SCH (14:30)
--- NOTE | 2020-06-19 15:56 | PDOC.HOSPP ---
- Subjective Encounter Date: 06/19/20 Encounter Time: 15:40 Subjective: f/u for sepsis of unclear source receiving Cefepime/Vancomycin. s/p Urolift approx 2 weeks prior and s/p COVID vaccine 06/09/20. States some chills but overall feels ok. - Objective Vital Signs & Weight: Vital Signs (12 hours) Temp Pulse Resp BP BP Pulse Ox 06/19/20 15:12 97.7 F 68 16 157/64 H 99 06/19/20 10:45 98 F 59 L 14 125/55 L 97 06/19/20 08:00 98.8 F 62 14 95/48 L 98 06/19/20 07:27 98.8 F 62 14 95/48 L 98 06/19/20 04:20 98.3 F 76 16 147/57 H 98 Weight Weight 157 lb 14.4 oz I&O: 06/18/20 06/19/20 06/20/20 06:59 06:59 06:59 Intake Total 10 Balance 10 Result Diagrams: 06/19/20 05:32 06/19/20 05:32 Additional Labs: Accuchecks 06/19/20 10:41 POC Glucose 146 H Microbiology 06/19/20 01:27 Urine voided Urine Culture - Preliminary NO GROWTH AT 12 HOURS Laboratory Tests 06/19/20 06/19/20 06/19/20 01:15 01:15 01:15 WBC 12.8 H Hgb 9.6 L Band Neuts % (Manual) 27 H BUN 28 H Lactic Acid 1.8 TSH 3rd Generation Influenza A RNA INAAT Influenza B RNA INAAT SARS-CoV-2 Rap RNA(RT-PCR) 06/19/20 06/19/20 06/19/20 02:06 05:32 05:32 WBC Hgb Band Neuts % (Manual) 37 H BUN Lactic Acid TSH 3rd Generation 0.9738 Influenza A RNA INAAT Not Detected Influenza B RNA INAAT Not Detected SARS-CoV-2 Rap RNA(RT-PCR) Not Detected Radiology Reviewed by me: Yes (PCXR - no acute infiltrate) Hospitalist ROS - Medication Medications: Active Medications Generic Name Dose Route Start Last Admin Trade Name Freq PRN Reason Stop Dose Admin Docusate Calcium 240 mg 06/19/20 14:30 06/19/20 14:38 Docusate Calcium (Surfak) 240 Mg Cap PO 01/25/21 16:30 240 mg NOW OLIVIA Administration - Exam General Appearance: NAD, awake alert Eye: PERRL, anicteric sclera ENT: normocephalic atraumatic, no oropharyngeal lesions Neck: supple, symmetric, no JVD, no thyromegaly, no lymphadenopathy Heart: RRR, no gallops, no rubs, normal peripheral pulses Heart - other findings: S1, S2 Respiratory: CTAB, no wheezes, no rales, no ronchi Gastrointestinal: soft, non-tender, non-distended, normal bowel sounds, no palpable masses Extremities: no cyanosis, no clubbing, no edema Skin: normal turgor, no lesions Neurological: cranial nerve grossly intact, no new deficit Musculoskeletal: normal tone, normal strength, no muscle wasting Psychiatric: normal affect, A&O x 3 Hosp A/P (1) Sepsis without septic shock Code(s): A41.9 - SEPSIS, UNSPECIFIED ORGANISM Status: Acute Plan: Exact etiology unclear, suspicion for potential prostate source given recent Urolift procedure, continue Cefepime/Vancomycin, UA/PCXR negative, blood cx p ending (2) CKD (chronic kidney disease), stage III Code(s): N18.30 - CHRONIC KIDNEY DISEASE, STAGE 3 UNSPECIFIED Status: Chronic Plan: Avoid nephrotoxic meds and limit contrast exposure (3) BPH (benign prostatic hyperplasia) Code(s): N40.0 - BENIGN PROSTATIC HYPERPLASIA WITHOUT LOWER URINRY TRACT SYMP Status: Chronic Plan: s/p Urolift with implants x 5, continue Flomax (4) HTN (hypertension) Code(s): I10 - ESSENTIAL (PRIMARY) HYPERTENSION Status: Chronic Qualifiers: Hypertension type: essential hypertension Qualified Code(s): I10 - Essential (primary) hypertension Plan: Resume home BP regimen (5) Hypothyroidism Code(s): E03.9 - HYPOTHYROIDISM, UNSPECIFIED Status: Chronic Plan: Resume home Levothyroxine - Plan continue antibiotics, out of bed/ambulate, DVT proph w/SCDs Stable currently Continue Cefepime/Vancomycin Consult Urology for any further recs OOB/ambulate Await final Blood cx results AM lab: BMP, CBC
[2020-06-19] MEDS: Rosuvastatin 20 MG TAB PO SCH (20:41)
[2020-06-19] MEDS ORDERED: Losartan/Hydrochlorothiazide 100 mg/25 mg Tablet PO SCH (21:00)
[2020-06-19] MEDS: Amlodipine 5 MG TAB PO SCH (21:02)
[2020-06-19] MEDS ORDERED: Melatonin 3 MG TAB PO SCH ×2 (21:30→23:30)
[2020-06-19] MEDS ORDERED: traZODone HCl 50 MG TAB PO SCH (23:15)
[2020-06-20] MEDS: Cefepime 1 GM in Sodium Chloride 0.9% 100 ML IVPB SCH (02:16)
[2020-06-20 02:34] LABS: #Basophils 0.1 thou/uL (0.0-0.2); #Eosinphils 0.2 thou/uL (0.0-0.7); #Lymphocytes 1.2 thou/uL (1.20-3.40); #Monocytes 0.8 thou/uL (0.11-0.59); #Neutrophils 8.3 thou/uL (1.40-6.50); %Basophils 0.5 % (0.0-1.0); %Eosinophils 1.5 % (0.0-10.0); %Lymphocytes 11.7 % (21.0-51.0); %Monocytes 7.3 % (0.0-10.0); Hemoglobin 9.7 g/dL (14.0-18.0); Mean Corpuscular HGB CONC 33.9 g/dL (32.0-36.0); Mean Corpuscular Hemoglobin 34.2 pg (27.0-31.0); Mean Platelet Volume 7.6 fL (7.4-10.4); Platelet Count 195 thou/uL (130-400); RBC Distribution Width 13.5 % (11.5-14.5); Red Blood Cell (RBC) Count 2.83 mill/uL (4.70-6.10); White Blood Cell (WBC) Count 10.5 thou/uL (4.8-10.8)
[2020-06-20 02:54] LABS: Vancomycin, Trough 4.4 ug/mL
[2020-06-20 03:00] LABS: Anion Gap 11 mmol/L (10-20); BUN (Urea Nitrogen) 23 mg/dL (8.4-25.7); Calc. Creatinine Clearance 59 mL/min (70-130); Calcium 8.2 mg/dL (7.8-10.44); Carbon Dioxide 24 mmol/L (23-31); Chloride 106 mmol/L (98-107); Glucose 108 mg/dL (83-110); Sodium 137 mmol/L (136-145)
[2020-06-20] MEDS ORDERED: Vancomycin 1 GM in Premix Bag 1 BAG IVPB SCH (03:00)
[2020-06-20] MEDS: Levothyroxine Sodium 75 MCG TAB PO SCH (08:20)
[2020-06-20] MEDS ORDERED: Amlodipine 5 MG TAB PO SCH (09:00)
[2020-06-20] MEDS ORDERED: CHLORPHENIRAMINE MALEATE 4 MG PO SCH (09:00)
[2020-06-20] MEDS: Clopidogrel Bisulfate 75 MG TAB PO SCH (09:13)
[2020-06-20] MEDS: Docusate Calcium (SURFAK) 240 MG CAP PO SCH (09:13)
[2020-06-20] MEDS: Losartan/Hydrochlorothiazide 100 mg/25 mg Tablet PO SCH (09:13)
[2020-06-20] MEDS: Spironolactone 25 MG TAB PO SCH (09:16)
[2020-06-20] MEDS: Tamsulosin HCl 0.4 MG CAP PO SCH (09:17)
--- NOTE | 2020-06-20 14:19 | PDOC.HOSPP ---
- Subjective Encounter Date: 06/20/20 Encounter Time: 14:00 Subjective: f/u Strep bacteremia likely prostatic source. Receiving Cefepime/Vancomycin and feels much better. - Objective Vital Signs & Weight: Vital Signs (12 hours) Temp Pulse Resp BP Pulse Ox 06/20/20 12:00 98.6 F 78 16 131/69 97 06/20/20 08:00 98.6 F 73 20 138/60 97 Weight Weight 157 lb 14.4 oz I&O: 06/19/20 06/20/20 06/21/20 06:59 06:59 06:59 Intake Total 10 360 Balance 10 360 Result Diagrams: 06/20/20 02:14 06/20/20 02:14 Additional Labs: Microbiology 06/19/20 01:27 Urine voided Urine Culture - Preliminary NO GROWTH AT 12 HOURS 06/19/20 01:15 Venous blood - Right Arm Blood Culture - Preliminary Alpha-Hemolytic Streptococcus 06/19/20 01:15 Venous blood - Left Arm Blood Culture - Preliminary Alpha-Hemolytic Streptococcus Laboratory Tests 06/19/20 06/19/20 06/19/20 01:15 01:15 01:15 WBC 12.8 H Hgb 9.6 L Band Neuts % (Manual) 27 H BUN 28 H Lactic Acid 1.8 TSH 3rd Generation Influenza A RNA INAAT Influenza B RNA INAAT SARS-CoV-2 Rap RNA(RT-PCR) 06/19/20 06/19/20 06/19/20 02:06 05:32 05:32 WBC Hgb Band Neuts % (Manual) 37 H BUN Lactic Acid TSH 3rd Generation 0.9738 Influenza A RNA INAAT Not Detected Influenza B RNA INAAT Not Detected SARS-CoV-2 Rap RNA(RT-PCR) Not Detected Hospitalist ROS - Medication Medications: Active Medications Generic Name Dose Route Start Last Admin Trade Name Freq PRN Reason Stop Dose Admin Acetaminophen 650 mg 06/19/20 03:23 06/19/20 20:59 Acetaminophen 325 Mg Tab PO 650 mg Q4H PRN Administration Headache/Fever/Mild Pain (1-3) Amlodipine Besylate 5 mg 06/19/20 21:00 06/19/20 21:02 Amlodipine 5 Mg Tab PO 5 mg HS OLIVIA Administration Clopidogrel Bisulfate 75 mg 06/20/20 09:00 06/20/20 09:13 Clopidogrel Bisulfate 75 Mg Tab PO 75 mg DAILY OLIVIA Administration Docusate Calcium 240 mg 06/20/20 09:00 06/20/20 09:13 Docusate Calcium (Surfak) 240 Mg Cap PO 240 mg DAILY OLIVIA Administration HCTZ/Losartan Potassium 1 tab 06/20/20 09:00 06/20/20 09:13 Losartan/Hydrochlorothiazide 100 Mg/25 Mg Tablet PO 1 tab DAILY OLIVIA Administration Cefepime HCl 1 gm/ Sodium 100 mls @ 200 mls/hr 06/20/20 02:00 06/20/20 02:16 Chloride IVPB 100 mls Q24HR OLIVIA Administration Levothyroxine Sodium 75 mcg 06/20/20 06:00 06/20/20 08:20 Levothyroxine Sodium 75 Mcg Tab PO 75 mcg 0600 OLIVIA Administration Rosuvastatin Calcium 20 mg 06/19/20 21:00 06/19/20 20:41 Rosuvastatin 20 Mg Tab PO 20 mg HS OLIVIA Administration Spironolactone 25 mg 06/20/20 09:00 06/20/20 09:16 Spironolactone 25 Mg Tab PO 25 mg DAILY OLIVIA Administration Tamsulosin HCl 0.4 mg 06/20/20 09:00 06/20/20 09:17 Tamsulosin Hcl 0.4 Mg Cap PO Not Given DAILY [facility] Hospitalist Exam Vitals: Vital Signs (12 hours) Temp Pulse Resp BP Pulse Ox 06/20/20 12:00 98.6 F 78 16 131/69 97 06/20/20 08:00 98.6 F 73 20 138/60 97 Weight Weight 157 lb 14.4 oz General Appearance: NAD, awake alert Eye: PERRL, anicteric sclera ENT: normocephalic atraumatic, no oropharyngeal lesions Neck: supple, symmetric, no JVD, no thyromegaly, no lymphadenopathy Heart: RRR, no gallops, no rubs, normal peripheral pulses Heart - other findings: S1, S2 Respiratory: CTAB, no wheezes, no rales, no ronchi, normal chest expansion Gastrointestinal: soft, non-tender, non-distended, normal bowel sounds, no palpable masses Extremities: no cyanosis, no clubbing, no edema Skin: normal turgor, no lesions Neurological: cranial nerve grossly intact, no new deficit Musculoskeletal: normal tone, normal strength, no muscle wasting Psychiatric: normal affect, A&O x 3 Hosp A/P (1) Sepsis without septic shock Code(s): A41.9 - SEPSIS, UNSPECIFIED ORGANISM Status: Acute Plan: Streptococcus spp isolated on blood cx x 2, continue Cefepime/Vancomycin pending final sensitivities (2) CKD (chronic kidney disease), stage III Code(s): N18.30 - CHRONIC KIDNEY DISEASE, STAGE 3 UNSPECIFIED Status: Chronic (3) BPH (benign prostatic hyperplasia) Code(s): N40.0 - BENIGN PROSTATIC HYPERPLASIA WITHOUT LOWER URINRY TRACT SYMP Status: Chronic (4) HTN (hypertension) Code(s): I10 - ESSENTIAL (PRIMARY) HYPERTENSION Status: Chronic Qualifiers: Hypertension type: essential hypertension Qualified Code(s): I10 - Essential (primary) hypertension (5) Hypothyroidism Code(s): E03.9 - HYPOTHYROIDISM, UNSPECIFIED Status: Chronic - Plan continue antibiotics, out of bed/ambulate, DVT proph w/SCDs Stable currently Continue Cefepime/Vancomycin Await final sensitivities from blood cx OOB/ambulate Likely home in am
[2020-06-20] MEDS: Rosuvastatin 20 MG TAB PO SCH (20:09)
[2020-06-20] MEDS: Amlodipine 5 MG TAB PO SCH (20:09)
[2020-06-20] MEDS ORDERED: Aspirin Chewable 81 MG TAB ONE ×2 (20:29→20:36)
[2020-06-20] MEDS ORDERED: diphenhydrAMINE 25 MG CAP PO SCH (20:30)
[2020-06-20] MEDS: Aspirin 81 mg Enteric Coated Tablet PO SCH (21:15)
[2020-06-21 02:37] LABS: Vancomycin, Trough 6.3 ug/mL
[2020-06-21] MEDS: Cefepime 1 GM in Sodium Chloride 0.9% 100 ML IVPB SCH (02:46)
[2020-06-21] MEDS ORDERED: Vancomycin 1 GM in Premix Bag 1 BAG IVPB SCH (03:00)
[2020-06-21] MEDS: Vancomycin 1 GM in Premix Bag 1 BAG IVPB SCH ×2 (03:36→14:48)
[2020-06-21] MEDS: Levothyroxine Sodium 75 MCG TAB PO SCH (05:55)
[2020-06-21] MEDS ORDERED: Aspirin 81 mg Enteric Coated Tablet PO SCH (09:00)
[2020-06-21] MEDS: Clopidogrel Bisulfate 75 MG TAB PO SCH (09:07)
[2020-06-21] MEDS: Losartan/Hydrochlorothiazide 100 mg/25 mg Tablet PO SCH (09:07)
[2020-06-21] MEDS: Docusate Calcium (SURFAK) 240 MG CAP PO SCH (09:07)
[2020-06-21] MEDS: Spironolactone 25 MG TAB PO SCH (09:07)
--- NOTE | 2020-06-21 15:29 | PDOC.HOSPP ---
- Subjective Encounter Date: 06/21/20 Encounter Time: 15:20 Subjective: f/u for bacteremia with Strep spp on current Cefepime/Vancomycin. Feels ok overall and awaiting final sensitivities prior to d/c. - Objective Vital Signs & Weight: Vital Signs (12 hours) Temp Pulse Resp BP Pulse Ox 06/21/20 12:00 99.2 F 73 14 118/62 97 06/21/20 08:00 98.2 F 73 14 144/60 H 97 Weight Weight 157 lb 14.4 oz I&O: 06/20/20 06/21/20 06/22/20 06:59 06:59 06:59 Intake Total 360 1100 Balance 360 1100 Result Diagrams: 06/20/20 02:14 06/20/20 02:14 Additional Labs: Microbiology 06/19/20 01:27 Urine voided Urine Culture - Preliminary NO GROWTH AT 12 HOURS 06/19/20 01:15 Venous blood - Right Arm Blood Culture - Preliminary Alpha-Hemolytic Streptococcus 06/19/20 01:15 Venous blood - Left Arm Blood Culture - Preliminary Alpha-Hemolytic Streptococcus Laboratory Tests 06/19/20 06/19/20 06/19/20 01:15 01:15 01:15 WBC 12.8 H Hgb 9.6 L Band Neuts % (Manual) 27 H BUN 28 H Lactic Acid 1.8 TSH 3rd Generation Influenza A RNA INAAT Influenza B RNA INAAT SARS-CoV-2 Rap RNA(RT-PCR) 06/19/20 06/19/20 06/19/20 02:06 05:32 05:32 WBC Hgb Band Neuts % (Manual) 37 H BUN Lactic Acid TSH 3rd Generation 0.9738 Influenza A RNA INAAT Not Detected Influenza B RNA INAAT Not Detected SARS-CoV-2 Rap RNA(RT-PCR) Not Detected Hospitalist ROS - Medication Medications: Active Medications Generic Name Dose Route Start Last Admin Trade Name Freq PRN Reason Stop Dose Admin Acetaminophen 650 mg 06/19/20 03:23 06/19/20 20:59 Acetaminophen 325 Mg Tab PO 650 mg Q4H PRN Administration Headache/Fever/Mild Pain (1-3) Amlodipine Besylate 5 mg 06/19/20 21:00 06/20/20 20:09 Amlodipine 5 Mg Tab PO 5 mg HS OLIVIA Administration Aspirin 81 mg 06/20/20 21:00 06/20/20 21:15 Aspirin 81 Mg Enteric Coated Tablet PO Not Given HS PENDING S[facility] TO [facility] Clopidogrel Bisulfate 75 mg 06/20/20 09:00 06/21/20 09:07 Clopidogrel Bisulfate 75 Mg Tab PO 75 mg DAILY [facility] TO [facility] Administration Docusate Calcium 240 mg 06/20/20 09:00 06/21/20 09:07 Docusate Calcium (Surfak) 240 Mg Cap PO 240 mg DAILY OLIVIA Administration HCTZ/Losartan Potassium 1 tab 06/20/20 09:00 06/21/20 09:07 Losartan/Hydrochlorothiazide 100 Mg/25 Mg Tablet PO 1 tab DAILY OLIVIA Administration Cefepime HCl 1 gm/ Sodium 100 mls @ 200 mls/hr 06/20/20 02:00 06/21/20 02:46 Chloride IVPB 100 mls Q24HR OLIVIA Administration Vancomycin HCl 1 gm/ Device 200 mls @ 200 mls/hr 06/21/20 03:00 06/21/20 14:48 IVPB 200 mls 0300,1500 OLIVIA Administration Levothyroxine Sodium 75 mcg 06/20/20 06:00 06/21/20 05:55 Levothyroxine Sodium 75 Mcg Tab PO 75 mcg 0600 OLIVIA Administration Rosuvastatin Calcium 20 mg 06/19/20 21:00 06/20/20 20:09 Rosuvastatin 20 Mg Tab PO 20 mg HS [facility] TO [facility] Administration Spironolactone 25 mg 06/20/20 09:00 06/21/20 09:07 Spironolactone 25 Mg Tab PO 25 mg DAILY OLIVIA Administration Tamsulosin HCl 0.4 mg 06/20/20 09:00 06/20/20 09:17 Tamsulosin Hcl 0.4 Mg Cap PO Not Given DAILY [facility] Hospitalist Exam Vitals: Vital Signs (12 hours) Temp Pulse Resp BP Pulse Ox 06/21/20 12:00 99.2 F 73 14 118/62 97 06/21/20 08:00 98.2 F 73 14 144/60 H 97 Weight Weight 157 lb 14.4 oz General Appearance: NAD, awake alert Eye: PERRL, anicteric sclera ENT: normocephalic atraumatic, no oropharyngeal lesions Neck: supple, symmetric, no JVD, no thyromegaly, no lymphadenopathy Heart: RRR, no gallops, no rubs, normal peripheral pulses Heart - other findings: S1, S2 Respiratory: CTAB, no wheezes, no rales, no ronchi, normal chest expansion, no tachypnea Gastrointestinal: soft, non-tender, non-distended, normal bowel sounds, no palpable masses Extremities: no cyanosis, no clubbing, no edema Skin: normal turgor, no lesions Neurological: cranial nerve grossly intact, no new deficit Musculoskeletal: normal tone, normal strength, no muscle wasting Psychiatric: normal affect, A&O x 3 Hosp A/P (1) Sepsis without septic shock Code(s): A41.9 - SEPSIS, UNSPECIFIED ORGANISM Status: Acute Plan: Strep spp isolated likely urinary source, continue Cefepime/Vanc, await final sensitivities (2) CKD (chronic kidney disease), stage III Code(s): N18.30 - CHRONIC KIDNEY DISEASE, STAGE 3 UNSPECIFIED Status: Chronic (3) BPH (benign prostatic hyperplasia) Code(s): N40.0 - BENIGN PROSTATIC HYPERPLASIA WITHOUT LOWER URINRY TRACT SYMP Status: Chronic (4) HTN (hypertension) Code(s): I10 - ESSENTIAL (PRIMARY) HYPERTENSION Status: Chronic Qualifiers: Hypertension type: essential hypertension Qualified Code(s): I10 - Essential (primary) hypertension (5) Hypothyroidism Code(s): E03.9 - HYPOTHYROIDISM, UNSPECIFIED Status: Chronic - Plan plan discussed w/ family, continue antibiotics, out of bed/ambulate, DVT proph w/SCDs Stable currently Continue Cefepime/Vancomycin Await final sensitivities from blood cx OOB/ambulate Likely home in am
[2020-06-21] MEDS: Tamsulosin HCl 0.4 MG CAP PO SCH (17:16)
[2020-06-21] MEDS ORDERED: diphenhydrAMINE 25 MG CAP PO PRN (20:05)
[2020-06-21] MEDS: Amlodipine 5 MG TAB PO SCH (21:04)
[2020-06-21] MEDS: Rosuvastatin 20 MG TAB PO SCH (21:04)
[2020-06-21] MEDS: Aspirin 81 mg Enteric Coated Tablet PO SCH (21:04)
[2020-06-22] MEDS: Cefepime 1 GM in Sodium Chloride 0.9% 100 ML IVPB SCH (02:16)
[2020-06-22] MEDS: Vancomycin 1 GM in Premix Bag 1 BAG IVPB SCH (02:50)
[2020-06-22] MEDS: Levothyroxine Sodium 75 MCG TAB PO SCH (05:51)
[2020-06-22] MEDS: Losartan/Hydrochlorothiazide 100 mg/25 mg Tablet PO SCH (10:03)
[2020-06-22] MEDS: Docusate Calcium (SURFAK) 240 MG CAP PO SCH (10:04)
[2020-06-22] MEDS: Clopidogrel Bisulfate 75 MG TAB PO SCH (10:04)
[2020-06-22] MEDS: Spironolactone 25 MG TAB PO SCH (10:04)
[2020-06-22] MEDS: Tamsulosin HCl 0.4 MG CAP PO SCH (10:05)
[2020-06-22 11:28] VITALS: BP 139/63; TEMP 98.3
--- NOTE | 2020-06-22 12:16 | DIS ---
DATE OF ADMISSION: 06/19/2020 DATE OF DISCHARGE: 06/22/2020 DISCHARGE DIAGNOSES: 1. Sepsis without septic shock, secondarily to #2, resolved. 2. Bacteremia with alpha hemolytic Streptococcus species. 3. Chronic kidney disease, stage 3. 4. Benign prostatic hyperplasia, status post prostatic implants. 5. Hypertension, stable. 6. Hypothyroidism, stable. CONSULTATION: Dr. Coker with Urology Service. PERTINENT LABORATORY AND X-RAY FINDINGS: Creatinine ranged between 0.93 to 1.25. Lactic acid level 1.8. TSH 0.97. CBC showed a white blood cell count ranging between 10.5 to 19.6, hemoglobin ranged between 9.3 to 9.7. Bands ranged between 27% to 37%. COVID-19 PCR not detected on 06/19/2020. Influenza A and B antigen not detected on 06/19/2020. Blood cultures x2 positive for alpha hemolytic Streptococcus species. Urine culture dated 06/19/2020, showed no growth at 36 hours. Portable chest x-ray dated 06/19/2020, showed no acute cardiopulmonary process. HOSPITAL COURSE: The patient was admitted to the medical floor after presenting with chills, myalgia, and fever. The patient underwent general evaluation, meeting sepsis criteria with tachycardia, elevated white blood cell count, status post recent UroLift procedure due to BPH. The patient was placed on broad-spectrum antibiotic therapy including cefepime and vancomycin. Blood cultures were positive 2/2 sets with alpha hemolytic Streptococcus species with final sensitivities pending. The patient rapidly clinically improved with antibiotic coverage and IV fluids with normalization of white blood cell count by the time of discharge. The patient remained afebrile and clinically stable throughout the hospital course. The patient was transitioned to Levaquin 750 mg daily to complete 10 days of outpatient antibiotic coverage. I have examined the patient at the time of discharge and discussed followup instructions. The patient verbalized understanding and agreement, ready for discharge on 06/22/2020. DISCHARGE MEDICATIONS: 1. Aspirin 81 mg p.o. daily. 2. Chlorpheniramine 4 mg p.o. daily p.r.n. 3. Plavix 75 mg p.o. daily. 4. Crestor 20 mg p.o. at bedtime. 5. Flomax 0.4 mg p.o. daily. 6. Levothyroxine 75 mcg p.o. daily. 7. Losartan/HCTZ 100/25 mg one tablet p.o. daily. 8. Amlodipine 5 mg p.o. at bedtime. 9. Spironolactone 25 mg p.o. daily. 10. Surfak 240 mg p.o. daily. 11. Levaquin 750 mg p.o. daily x10 days. FOLLOWUP: The patient may follow up with his primary care provider, Dr. Ángel Esquivel. The patient will follow up with Dr. Judd Coker with Urology Service. CONDITION ON DISCHARGE: Stable. ACTIVITY: Ad-sirisha. DIET: Heart healthy. CODE STATUS: Do not attempt resuscitation. DISPOSITION: To home 06/22/2020. Total time preparing and coordinating discharge, 35 minutes. Job ID: [id number]
--- NOTE | 2020-06-27 08:10 | PQF ---
CLINICAL DOCUMENTATION CLARIFICATION FORM: Dear : YSABEL WORTHY DO Date / Time: 06/27/2020 Please exercise your independent, professional judgment in responding to the clarification form. Clinical indicators are provided on the bottom of this form for your review Please check appropriate box(es): [ ] sepsis with unclear source [ x ] Sepsis due to bacteremia with alpha hemolytic streptococcus species [ ] Sepsis is a complication of recent urolift surgery [ ] Other diagnosis (Please specify if any) [ ] Unable to determine In addition, please specify: Present on Admission (POA): [ x ] Yes [ ] No [ ] Unable to determine Physician Signature: Date/Time: For continuity of documentation, please document condition throughout progress notes and discharge summary. Thank You. To be completed by CDI/Coding staff for physician review: Present Clinical Indicators - Signs / Symptoms / Labs Results and Location in Medical Record [x] F/U for sepsis of unclear source receiving cefepime.vancomycin Hospitalist progress notes on 06/19 [x] Sepsis-exact etiology unclear Hospitalist progress notes on 06/19 [x] Strep spp isolated likely urinary source Hospitalist progress notes on 06/21 [x] Sepsis without septic shock, secondarily to bacteremia with alpha hemolytic streptococcus species Discharge summary on 06/22 [x] Blood cultures-streptococcus Microbiology on 06/19 [ ] Dehiscence [ ] Bleeding [ ] Infection Present Risk Factors Results and Location in Medical Record [x] Recent surgery-urolift 2 weeks ago H&P on 06/19 [x] Poor healing factors -advanced age 84 yrs H&P on 06/19 [ ] Recent use of antibiotics [ ] Present Treatments Results and Location in Medical Record [x] Vancomycin 1gm IV Medication on 06/21,06/22 [x] Cefepime 1gm IV Medication from 06/19 to 06/22 [ ] Surgical procedure/ Evaluation [ ] CDS/Process Camera Operator Signature: AAS Phone #: Date/Time: 06/27/2020 This is a permanent part of the Medical Record [facility]
--- NOTE | 2020-07-01 21:05 | EKG ---
Test Reason : Blood Pressure : / mmHG Vent. Rate : 108 BPM Atrial Rate : 108 BPM P-R Int : 200 ms QRS Dur : 142 ms QT Int : 352 ms P-R-T Axes : 108 128 057 degrees QTc Int : 471 ms Suspect arm lead reversal, interpretation assumes no reversal Sinus tachycardia Left bundle branch block Lateral infarct , age undetermined Abnormal ECG Confirmed by YOSI GIBBONS ([id number]), dictionary editor ELTON LORENZANA ([id number]) on 07/01/2020 9:04:40 PM Referred By: Confirmed By:YOSI GIBBONS
== END 2020-06-22 12:30 | disposition home or self-care (01) | DRG 872 ==
LOC: ERS 00:45 → SURG A 02:43 → OBSVTOIN 15:16
PROVIDERS: ADMIT Internal Medicine; ATTEND Family Medicine
DX: A40.9 Streptococcal sepsis, unspecified (principal); I25.10 Atherosclerotic heart disease of native coronary artery without angina pectoris; E78.5 Hyperlipidemia, unspecified; N18.30 Chronic kidney disease, stage 3 unspecified; N40.0 Benign prostatic hyperplasia without lower urinary tract symptoms; I12.9 Hypertensive chronic kidney disease with stage 1 through stage 4 chronic kidney disease, or unspecified chronic kidney disease; E03.9 Hypothyroidism, unspecified; Z20.822 Contact with and (suspected) exposure to COVID-19; Z66 Do not resuscitate; Z95.1 Presence of aortocoronary bypass graft; Z95.4 Presence of other heart-valve replacement; Z79.899 Other long term (current) drug therapy; Z79.890 Hormone replacement therapy; Z79.82 Long term (current) use of aspirin; Z79.01 Long term (current) use of anticoagulants; Z90.49 Acquired absence of other specified parts of digestive tract; Z98.890 Other specified postprocedural states; Z88.8 Allergy status to other drugs, medicaments and biological substances
CPT/HCPCS: 0240U; 36415; 36416; 71045; 80048; 80053; 80202; 81003; 82550; 83605; 84443; 84484; 85025; 87040; 87077; 87086; 87149; 87186; 93005; 96365; 96367; G0378; J0692; J3370; J3490; Q0163

== ENCOUNTER 2021-12-11 14:51 | Observation (INO) | payer MEDICARE ==
[2021-12-11] MEDS ORDERED: Aspirin Chewable 81 MG TAB ONE (15:28)
[2021-12-11 16:02] LABS: ALT (SGPT) 13 U/L (8-55); AST (SGOT) 17 U/L (5-34); Alkaline Phosphatase 58 U/L (40-110); Anion Gap 13 mmol/L (10-20); BUN (Urea Nitrogen) 23 mg/dL (8.4-25.7); Bilirubin, Total 1.2 mg/dL (0.2-1.2); Calc. Creatinine Clearance 0 mL/min (70-130); Calcium 8.9 mg/dL (7.8-10.44); Carbon Dioxide 26 mmol/L (23-31); Chloride 105 mmol/L (98-107); Estimated GFR 51; Globulin 2.1 g/dL (2.4-3.5); Glucose 147 mg/dL (83-110); Lipase 8 U/L (8-78); Magnesium 2.2 mg/dL (1.6-2.6); Potassium 4.3 mmol/L (3.5-5.1); Protein, Total 6.1 g/dL (5.8-8.1); Sodium 140 mmol/L (136-145)
[2021-12-11 16:18] LABS: #Lymphocytes 0.5 thou/uL (1.20-3.40); #Monocytes 0.6 thou/uL (0.11-0.59); #Neutrophils 6.7 thou/uL (1.40-6.50); %Basophils 0.5 % (0.0-1.0); %Eosinophils 0.1 % (0.0-10.0); %Lymphocytes 6.3 % (21.0-51.0); %Monocytes 7.4 % (0.0-10.0); %Neutrophils 85.7 % (42.0-75.0); Hemoglobin 11.7 g/dL (14.0-18.0); Mean Corpuscular HGB CONC 32.8 g/dL (32.0-36.0); Mean Corpuscular Hemoglobin 34.9 pg (27.0-31.0); Mean Platelet Volume 9.1 fL (7.4-10.4); Platelet Count 206 thou/uL (130-400); RBC Distribution Width 14.3 % (11.5-14.5); Red Blood Cell (RBC) Count 3.36 mill/uL (4.70-6.10); White Blood Cell (WBC) Count 7.8 thou/uL (4.8-10.8)
[2021-12-11 16:19] LABS: Burr Cells SLIGHT = 2-5 cells (100X) (0-1/hpf); MDiff Complete? YES; Macrocytosis SLIGHT = 6-15 cells (100X) (0-5/hpf); Ovalocytes SLIGHT = 2-5 cells (100X) (0-1/hpf); Platelet Morphology Comment Appears Adequate; Polychromasia SLIGHT = 2-3 cells (100X) (0-2/hpf)
[2021-12-11] MEDS ORDERED: Ondansetron ODT 4 MG TAB PO PRN (16:58)
[2021-12-11] MEDS ORDERED: Acetaminophen 325 MG TAB PO PRN (16:58)
[2021-12-11 17:39] LABS: SARS-CoV-2 NAA Rapid Test Not Detected (NotDetected)
[2021-12-11 17:41] LABS: #Lymphocytes 0.7 thou/uL (1.20-3.40); #Monocytes 0.6 thou/uL (0.11-0.59); #Neutrophils 8.5 thou/uL (1.40-6.50); %Basophils 0.2 % (0.0-1.0); %Eosinophils 0.1 % (0.0-10.0); %Lymphocytes 6.7 % (21.0-51.0); %Monocytes 6.3 % (0.0-10.0); %Neutrophils 86.7 % (42.0-75.0); Hemoglobin 11.7 g/dL (14.0-18.0); Mean Corpuscular HGB CONC 32.9 g/dL (32.0-36.0); Mean Corpuscular Hemoglobin 34.7 pg (27.0-31.0); Mean Platelet Volume 9.9 fL (7.4-10.4); Platelet Count 208 thou/uL (130-400); RBC Distribution Width 14.2 % (11.5-14.5); Red Blood Cell (RBC) Count 3.37 mill/uL (4.70-6.10); White Blood Cell (WBC) Count 9.9 thou/uL (4.8-10.8)
[2021-12-11 17:52] LABS: Hemoglobin A1c 5.7 % (4.0-6.0)
[2021-12-11 17:58] LABS: ALT (SGPT) 13 U/L (8-55); AST (SGOT) 17 U/L (5-34); Albumin 3.9 g/dL (3.4-4.8); Alkaline Phosphatase 59 U/L (40-110); Anion Gap 14 mmol/L (10-20); BUN (Urea Nitrogen) 23 mg/dL (8.4-25.7); Calc. Creatinine Clearance 0 mL/min (70-130); Calcium 9.1 mg/dL (7.8-10.44); Carbon Dioxide 24 mmol/L (23-31); Chloride 106 mmol/L (98-107); Estimated GFR 49; Globulin 2.6 g/dL (2.4-3.5); Glucose 130 mg/dL (83-110); Potassium 4.2 mmol/L (3.5-5.1); Protein, Total 6.5 g/dL (5.8-8.1); Sodium 140 mmol/L (136-145)
[2021-12-11 17:59] LABS: Cardiac Risk 2.5 (Less than 4.5)
[2021-12-11 18:52] LABS: Troponin I Less than 0.010 ng/mL (< 0.028)
[2021-12-11 19:23] LABS: Bilirubin Negative (Negative); Blood, Urine Negative (Negative); Clarity Clear (Clear); Glucose, Urine (Dipstick) Normal (Negative); Ketone, Urine Trace mg/dL (Negative); Leukocyte Negative Leu/uL (Negative); Nitrite Negative (Negative); Protein, Urine (Dipstick) Negative (Neg-Trace); Specific Gravity, Urine 1.022 (1.002-1.036); Urobilinogen Normal mg/dL (Less than 2); pH, Urine 5.5 (5.0-9.0)
[2021-12-11 20:28] VITALS: BMI 21.5
[2021-12-11] MEDS ORDERED: Rosuvastatin 20 MG TAB PO SCH (21:00)
[2021-12-11] MEDS ORDERED: Melatonin 3 MG TAB PO SCH (22:00)
[2021-12-11 22:05] LABS: Troponin I 0.021 ng/mL (< 0.028)
[2021-12-11] MEDS ORDERED: Amlodipine 5 MG TAB PO SCH (22:15)
[2021-12-12] MEDS ORDERED: Levothyroxine Sodium 75 MCG TAB PO SCH (06:00)
[2021-12-12 08:07] LABS: Anion Gap 12 mmol/L (10-20); BUN (Urea Nitrogen) 22 mg/dL (8.4-25.7); Calc. Creatinine Clearance 38 mL/min (70-130); Calcium 8.9 mg/dL (7.8-10.44); Carbon Dioxide 26 mmol/L (23-31); Chloride 106 mmol/L (98-107); Estimated GFR 53; Glucose 105 mg/dL (83-110); Potassium 3.9 mmol/L (3.5-5.1); Sodium 140 mmol/L (136-145)
[2021-12-12] MEDS ORDERED: Aspirin 81 mg Enteric Coated Tablet PO SCH ×2 (09:00→21:00)
[2021-12-12] MEDS ORDERED: Docusate Calcium (SURFAK) 240 MG CAP PO SCH (09:00)
[2021-12-12] MEDS ORDERED: Hydrochlorothiazide 25 MG TAB PO SCH (09:00)
[2021-12-12] MEDS ORDERED: Losartan 25 MG TAB PO SCH (09:00)
[2021-12-12 15:48] VITALS: TEMP 98
[2021-12-12 15:56] VITALS: BP 133/62
[2021-12-12] MEDS ORDERED: Melatonin 3 MG TAB PO SCH (21:00)
[2021-12-12] MEDS ORDERED: Amlodipine 5 MG TAB PO SCH (21:00)
[2021-12-12] MEDS ORDERED: CHLORPHENIRAMINE MALEATE 4 MG PO SCH (21:00)
[2021-12-12] MEDS ORDERED: Rosuvastatin 20 MG TAB PO SCH (21:00)
== END 2021-12-12 18:30 | disposition home or self-care (01) ==
LOC: ERS 14:51 → NEURO 16:58
PROVIDERS: ADMIT Family Medicine; ATTEND Family Medicine
DX: R42 Dizziness and giddiness (principal); R11.11 Vomiting without nausea; R53.1 Weakness; I10 Essential (primary) hypertension; D53.9 Nutritional anemia, unspecified; I25.10 Atherosclerotic heart disease of native coronary artery without angina pectoris; E78.00 Pure hypercholesterolemia, unspecified; Z66 Do not resuscitate; Z79.82 Long term (current) use of aspirin; Z79.890 Hormone replacement therapy; Z79.899 Other long term (current) drug therapy; Z88.8 Allergy status to other drugs, medicaments and biological substances; Z95.1 Presence of aortocoronary bypass graft; Z95.2 Presence of prosthetic heart valve; Z20.822 Contact with and (suspected) exposure to COVID-19
CPT/HCPCS: 70450; 70551; 80048; 80061; 81003; 83036; 83690; 83735; 84484 ×2; 93005; 93880; 97116; G0378 ×3; U0002; 36415; 80053; 84443; 85025

== ENCOUNTER 2023-05-08 14:33 | Outpatient (CLI) | payer OTHER | END 2023-05-08 14:34 | disposition home or self-care (01) | LOC: ULT 14:33 | DX: N18.9 Chronic kidney disease, unspecified (principal); N40.0 Benign prostatic hyperplasia without lower urinary tract symptoms | CPT/HCPCS: 76770 ==